=== PATIENT | female | born 1950 | race Caucasian/White ===

== ENCOUNTER 2016-08-20 09:32 | Outpatient (CLI) | payer OTHER ==
--- NOTE | 2016-08-20 10:45 | DIAGNOSTIC IMAGING REPORT ---
PROCEDURE: CT SINUS/FACIAL BONES W/O CONT CLINICAL INDICATION: CHRONIC FRONTAL SINUSITIS TECHNIQUE: Noncontrast axial CT images through the sinuses. Coronal and sagittal reformations were created. COMPARISON: None. FINDINGS: The frontal sinuses are normally aerated. The outflow tracts are patent. Sphenoid sinuses and their outflow tracts are patent. No mucosal thickening throughout the ethmoid air cells without complete opacification. The maxillary sinuses are normally aerated with no mucosal thickening. The outflow tracts are patent. The nasal septum is midline without significant spurring. Nasal passages are patent with normal nasal turbinate morphology. No facial bone fractures. Temporomandibular joints are normally aligned. Bony orbits are intact. Orbital soft tissues appear normal. Facial soft tissues and visible glandular structures are symmetric. IMPRESSION: 1. Normal sinuses All CT scans at this facility use dose modulation, iterative reconstruction, and/or weight-based dosing when appropriate to reduce radiation dose to as low as reasonably achievable.
== END 2016-08-20 23:00 ==
LOC: CT SRH 09:32
DX: J32.1 Chronic frontal sinusitis (principal)

== ENCOUNTER → 2016-09-25 | Outpatient (CLI) | payer OTHER ==
--- NOTE | 2016-09-25 14:23 | DIAGNOSTIC IMAGING REPORT ---
PROCEDURE: CT SOFT TISSUE NECK WITH CONT INDICATION: THROAT PAIN,GLOBUS SYNDROME,SUSPECT MALIGNANCY TECHNIQUE: 125 ml of Isovue 300 injected intravenously and axial images were obtained from the skull base through the upper mediastinum with sagittal and coronal reformations. Additional axial sequences obtained with phonation. COMPARISON: None. FINDINGS: 9 mm mucosal thickening of the left aryepiglottic fold extending to the uvula, posterior aspect of the larynx and left vocal cord which is paralyzed. There is approximate 1 cm subglottic extension. There is mild lateral extension and there is thinning of the left thyroid cartilage but no overt destruction. Normal hyoid bone. There are several necrotic left jugular lymph nodes measuring at 1 cm diameter. There are three right upper lobe small spiculated and a single superior segment left lower lobe (adjacent to the major fissure) spiculated nodules. Parotid and submandibular glands are normal. 1.3 cm right thyroid lobe cystic mass with several additional smaller bilateral hypoenhancing nodules. Bilateral carotid calcific atherosclerosis. Moderate calcific atherosclerosis of the carotid bifurcations. Moderate degenerative changes of the spine. IMPRESSION: 1. Left aryepiglottic mass with extension to the uvula, posterior aspect of the larynx, left vocal cord and subglottic extension, associated with necrotic left jugular lymph nodes. There is thinning of the left thyroid cartilage but no overt destruction. Findings are most consistent with a primary neoplasm. 2. Right upper and left lower lobe mass small spiculated nodules suspicious for metastases. Recommend CT chest. 3. Bilateral thyroid nodules All CT scans at this facility use dose modulation, iterative reconstruction, and/or weight-based dosing when appropriate to reduce radiation dose to as low as reasonably achievable.
== END ==
LOC: CT SRH 09:21 → LAB SRH 09:21 → CT SRH 10:30
DX: R93.8 Abnormal findings on diagnostic imaging of other specified body structures (principal); R07.0 Pain in throat; F45.8 Other somatoform disorders; C32.1 Malignant neoplasm of supraglottis
CPT/HCPCS: 90074; 91631; 92560

== ENCOUNTER 2016-11-12 09:29 | Outpatient (CLI) | payer OTHER ==
--- NOTE | 2016-11-12 13:40 | DIAGNOSTIC IMAGING REPORT ---
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 TECHNIQUE: Written informed consent was obtained from the patient prior to the procedure. Risks discussed included but were not limited to bleeding, infection, injury to adjacent structures, pain, nondiagnostic sample, and allergic reaction. It was agreed to proceed. Prone position on the CT table. Preliminary CT imaging demonstrated a destructive lytic lesion involving the T4 pedicle, transverse process, and adjacent T4 rib proximally. Trace extension of soft tissue into the right aspect of the thecal sac. An appropriate skin entry site was chosen and marked. The skin was prepped and draped in the usual sterile fashion. Skin and subcutaneous tissue was anesthetized thoroughly with 1% lidocaine. Under intermittent CT guidance, a 18-gauge Chiba needle was directed into the bone. Two aspirate specimens were obtained. Subsequently, a 19-gauge introducer was directed into the bone and through this, a single 20-gauge core biopsy sample was obtained. Samples were placed into formalin and taken to the lab. CT images were acquired documenting the introducer needle in position for all three biopsy passes. The needle was removed, hemostasis was achieved, the skin was cleansed, and a sterile bandage was applied. The patient was helped off the table. The patient left the radiology department in stable condition with standard post procedure instructions. The patient tolerated the procedure well and there were no immediate complications. COMPARISON: PET CT 10/30/2016 FINDINGS: Adequate aspirate and core biopsy samples. IMPRESSION: 1. Successful CT-guided biopsy of right T4 soft tissue mass. 2. Pathology is pending.
== END 2016-11-12 23:00 | disposition home or self-care (01) ==
LOC: CT SRH 09:29
PROC: 0PB43ZX Excision of Thoracic Vertebra, Percutaneous Approach, Diagnostic (ICD-10-PCS; principal; 2016-11-12)
DX: C32.1 Malignant neoplasm of supraglottis (principal); Z85.828 Personal history of other malignant neoplasm of skin
CPT/HCPCS: 82305; 82445; 82538; 90074; 94060

== ENCOUNTER 2016-11-13 08:42 | Outpatient (CLI) | payer OTHER ==
--- NOTE | 2016-11-13 10:23 | DIAGNOSTIC IMAGING REPORT ---
PROCEDURE: XR CHEST 1 VIEW INDICATION: PICC PLACEMENT TECHNIQUE: Single view chest. 09:59 hours COMPARISON: None FINDINGS: Left-sided PICC line is in place. The tip is at the cavoatrial junction. The cardiomediastinal contour and central vessels are normal. No pneumothorax, effusion, or dense parenchymal consolidation. Grossly intact osseous structures. IMPRESSION: 1. Good position of left-sided PICC line. 2. Discussed with Noe from respiratory. 3. No acute cardiopulmonary disease.
== END 2016-11-13 23:00 | disposition home or self-care (01) ==
LOC: SDP SRH 08:42
PROC: 02HV33Z Insertion of Infusion Device into Superior Vena Cava, Percutaneous Approach (ICD-10-PCS; principal; 2016-11-13)
PROC: B548ZZA Ultrasonography of Superior Vena Cava, Guidance (ICD-10-PCS; principal; 2016-11-13)
DX: C76.0 Malignant neoplasm of head, face and neck (principal)

== ENCOUNTER 2016-11-24 13:27 | Outpatient (CLI) | payer OTHER ==
--- NOTE | 2016-11-24 16:07 | DIAGNOSTIC IMAGING REPORT ---
PROCEDURE: MR THORACIC SPINE W/WO CONT INDICATION: C32.1 MALIGNANT NEOPLASM OF SUPRAGLOTTIS TECHNIQUE: Noncontrast T1, T2, and proton density sagittal images. T1 and T2 STIR axial images. 10 ml of ProHance administered IV and axial and sagittal T1 fat sat sequences were obtained. COMPARISON: PET/CT scan from [facility] 10/30/2016. FINDINGS: No significant change in the destructive enhancing mass in the right posterior aspect of the T4 and T5 vertebral bodies extending to the right pedicles and foramina, right T4 posterior elements, right T4 transverse process and proximal right fourth rib. There is a severe primarily right-sided pathological T4 fracture with retropulsion resulting in flattening of the cord anteriorly. There is moderate right T3-4 in severe T4-5 foraminal stenosis. There is also a 50% T5 pathological compression fracture. There is an additional 1 cm right T6 pedicle enhancing lesion. There is a 30% L1 superior endplate compression fracture. There is apparent enhancement of the T12 and L1 which may represent a signal suppression artifact. Thoracic cord has a normal configuration and signal without evidence of mass. Large right renal cyst. IMPRESSION: 1. Stable metastatic lesion at T4 and T5. 2. Severe right-sided T4 pathological compression fracture with retropulsion on the right side and flattening of the cord anteriorly but no spinal stenosis. 3. 50% T5 pathological compression fracture 4. Above findings result in moderate right T3-4 and severe T4-5 right foraminal stenosis 5. 1 cm right T6 pedicle enhancing lesion suspicious for additional metastasis 6. 30% L1 superior endplate compression fracture, etiology uncertain.
== END 2016-11-24 23:00 ==
LOC: MRI SRH 13:27
DX: C32.1 Malignant neoplasm of supraglottis (principal); C79.51 Secondary malignant neoplasm of bone